=== PATIENT | female | born 1970 | race Caucasian/White ===

== ENCOUNTER 2020-04-07 16:52 | Emergency (ER) | payer OTHER ==
[~2020-04-07] VITALS: Ht 160 cm; Wt 100.7 kg
[2020-04-07] MEDS ORDERED: METFORMIN HCL500 M3 PO (17:06)
[2020-04-07] MEDS ORDERED: BP MED (17:06)
[2020-04-07] MEDS ORDERED: IBU600 MG PO (18:02)
[2020-04-07 18:20] VITALS: BP 137/48
== END 2020-04-07 18:21 | disposition home or self-care (01) ==
LOC: M.ERS 16:52
DX: S83.8X2A Sprain of other specified parts of left knee, initial encounter (principal); E11.9 Type 2 diabetes mellitus without complications; I10 Essential (primary) hypertension; Z90.49 Acquired absence of other specified parts of digestive tract; Z87.442 Personal history of urinary calculi; Z86.73 Personal history of transient ischemic attack (TIA), and cerebral infarction without residual deficits; Z88.1 Allergy status to other antibiotic agents; W18.39XA Other fall on same level, initial encounter; Y93.89 Activity, other specified; Y92.89 Other specified places as the place of occurrence of the external cause; Y99.8 Other external cause status